=== PATIENT | male | born 2000 | race African-American/Black ===

== ENCOUNTER 2021-05-27 07:42 | Emergency (ER) | payer MEDICAID ==
[~2021-05-27] VITALS: Ht 160 cm; Wt 50.0 kg
[~2021-05-27 07:42] MED LIST: PROZAC
[2021-05-27] MEDS ORDERED: SODIUM CHLORIDE 0.9% 1,000 ML IV ONE (08:15)
[2021-05-27] MEDS ORDERED: ONDANSETRON HCL 4MG/2ML INJ IV ONE ×2 (08:15→09:30)
[2021-05-27] MEDS ORDERED: MECLIZINE 25MG TABLET PO ONE (08:15)
[2021-05-27 10:20] LABS: CHLORIDE 104 mEq/L (98-107)
[2021-05-27 10:31] LABS: BASOPHILS % 0.4 % (0.0-2.0); EOSINOPHILS % 0.9 % (0.0-5.0); HEMATOCRIT. 46.1 % (42.0-52.0); HEMOGLOBIN. 15.9 g/dL (14.0-18.0); LYMPHOCYTES % 28.7 % (20.0-50.0); MEAN CORPUSCULAR HEMOGLOBIN 30.4 pg (28.0-32.0); MEAN CORPUSCULAR VOLUME 88.3 fL (80.0-94.0); MEAN PLATELET VOLUME 8.7 fl (7.4-10.4); MONOCYTES % 8.4 % (2.0-8.0); NEUTROPHILS % 61.6 % (40.0-76.0); PLATELET 324 x1000/uL (130-400); RED BLOOD CELL COUNT 5.23 mill/uL (4.7-6.1); RED CELL DISTRIBUTION WIDTH 13.3 % (11.6-14.6)
[2021-05-27] MEDS ORDERED: MECL-159 PO (11:29)
[2021-05-27] MEDS ORDERED: ONDA4TAB5 PO (11:29)
[2021-05-27 11:50] VITALS: BP 127/69
== END 2021-05-27 11:50 | disposition home or self-care (01) ==
LOC: ER 07:42
DX: R42 Dizziness and giddiness (principal)
CPT/HCPCS: 36415; 70450; 80053; 85025; 96361; 96374; 99284; J2405; J7030; J8597

== ENCOUNTER 2021-09-24 09:47 | Emergency (ER) | payer MEDICAID, OTHER ==
[~2021-09-24] VITALS: Ht 165.1 cm; Wt 50.0 kg
[~2021-09-24 09:47] MED LIST changes: +MECL-159 PO; +ONDA4TAB5 PO
[2021-09-24 09:52] VITALS: BP 110/66
[2021-09-24] MEDS ORDERED: IBUPROFEN 600MG TABLET PO STA (10:17)
[2021-09-24] MEDS ORDERED: IBUP-2029 PO (11:12)
== END 2021-09-24 11:29 | disposition home or self-care (01) ==
LOC: ER 09:47
DX: M25.531 Pain in right wrist (principal)
CPT/HCPCS: 73110; 99283

== ENCOUNTER 2021-11-27 11:56 | Emergency (ER) | payer MEDICAID, OTHER ==
[~2021-11-27] VITALS: Ht 167.6 cm; Wt 55.0 kg
[~2021-11-27 11:56] MED LIST changes: +IBUP-2029 PO
[2021-11-27] MEDS ORDERED: IBUPROFEN 400MG TABLET PO ONE (13:30)
[2021-11-27 15:06] VITALS: BP 145/65
== END 2021-11-27 15:07 | disposition home or self-care (01) ==
LOC: ER 11:56
DX: S93.602A Unspecified sprain of left foot, initial encounter (principal); M79.672 Pain in left foot; V03.90XA Pedestrian on foot injured in collision with car, pick-up truck or van, unspecified whether traffic or nontraffic accident, initial encounter; Y93.89 Activity, other specified; Y92.410 Unspecified street and highway as the place of occurrence of the external cause
CPT/HCPCS: 73610; 73630; 99284

== ENCOUNTER 2022-03-16 12:28 | Emergency (ER) | payer MEDICAID, OTHER ==
[~2022-03-16] VITALS: Ht 165.1 cm; Wt 59.0 kg
[2022-03-16 12:36] VITALS: BP 118/58
[2022-03-16] MEDS ORDERED: NAPR-681 MT (18:54)
[2022-03-16] MEDS ORDERED: B50 MT (18:54)
[2022-03-16] MEDS ORDERED: PROCHLORPERAZINE MALEATE 10MG TABLET PO ONE (19:00)
[2022-03-16] MEDS ORDERED: KETOROLAC 60MG/2ML VIAL IM ONE (19:00)
[2022-03-16] MEDS ORDERED: DIPHENHYDRAMINE 25MG CAPSULE PO ONE (19:00)
== END 2022-03-16 18:59 | disposition home or self-care (01) ==
LOC: ER 12:28
DX: G43.909 Migraine, unspecified, not intractable, without status migrainosus (principal); F12.10 Cannabis abuse, uncomplicated; Z79.899 Other long term (current) drug therapy
CPT/HCPCS: 99282

== ENCOUNTER 2022-12-03 15:27 | Emergency (ER) | payer MEDICAID ==
[~2022-12-03] VITALS: Ht 162.6 cm; Wt 60.0 kg
[~2022-12-03 15:27] MED LIST changes: +B50 MT; +NAPR-681 MT
[2022-12-03] MEDS ORDERED: KETOROLAC 15MG/ML VIAL IM ONE (20:15)
[2022-12-03] MEDS ORDERED: CYCLOBENZAPRINE 10MG TABLET PO ONE (20:15)
[2022-12-03 20:20] VITALS: BP 112/74
[2022-12-03 20:34] LABS: BASOPHILS % 0.6 % (0.0-2.0); EOSINOPHILS % 1.2 % (0.0-5.0); HEMATOCRIT. 43.7 % (42.0-52.0); HEMOGLOBIN. 14.8 g/dL (14.0-18.0); LYMPHOCYTES % 36.7 % (20.0-50.0); MEAN CORPUSCULAR HEMOGLOBIN 30.9 pg (28.0-32.0); MEAN PLATELET VOLUME 7.6 fl (7.4-10.4); MONOCYTES % 6.9 % (2.0-8.0); NEUTROPHILS % 54.6 % (40.0-76.0); PLATELET 379 x1000/uL (130-400); RED CELL DISTRIBUTION WIDTH 14.3 % (11.6-14.6)
[2022-12-03 20:49] LABS: CHLORIDE 103 mEq/L (98-107)
[2022-12-04] MEDS ORDERED: IBUP-2029 MT (00:04)
[2022-12-04] MEDS ORDERED: CYCL10TA21 MT (00:04)
== END 2022-12-04 00:10 | disposition home or self-care (01) ==
LOC: ER 15:27
DX: R07.89 Other chest pain (principal); I50.9 Heart failure, unspecified; G43.909 Migraine, unspecified, not intractable, without status migrainosus; F12.10 Cannabis abuse, uncomplicated
CPT/HCPCS: 36415; 71045; 80053; 84484; 85025; 96372; 99284; J1885; Z7610

== ENCOUNTER 2023-01-06 14:15 | Emergency (ER) | payer MEDICAID ==
[~2023-01-06] VITALS: Ht 165.1 cm; Wt 55.0 kg
[~2023-01-06 14:15] MED LIST changes: +CYCL10TA21 MT; +IBUP-2029 MT
[2023-01-06 18:19] VITALS: BP 107/68
[2023-01-06] MEDS ORDERED: IBUP-2029 PO (19:48)
== END 2023-01-06 20:08 | disposition home or self-care (01) ==
LOC: ER 14:15
DX: G56.02 Carpal tunnel syndrome, left upper limb (principal); F12.10 Cannabis abuse, uncomplicated; Z86.59 Personal history of other mental and behavioral disorders
CPT/HCPCS: 73110; 99283